=== PATIENT | female | born 1985 | race Caucasian/White ===

== ENCOUNTER 2016-12-17 18:24 | Emergency (ER) | payer MEDICAID ==
[2016-12-17 18:36] VITALS: BP 125/66
[2016-12-17] MEDS ORDERED: CEPHALEXIN 500 MG CAPSULE PO ONE (18:54)
[2016-12-17] MEDS ORDERED: IBUPROFEN 800 MG TABLET PO ONE (18:54)
--- NOTE | 2016-12-17 18:58 | ER Document Report ---
HPI - HPI Patient complains to provider of: arm pain Onset: Other - 2 hours [employer] Onset/Duration: Gradual Quality of pain: Burning Pain Level: 3 Context: Patient states she developed burning to her right upper extremity 2 hours prior to arrival. Patient states area is red and warm to touch. Patient denies any fever. Patient does have an insect bite that she scratched to her right upper arm. Associated Symptoms: Other - Right upper extremity burning, redness. denies: Fever Exacerbated by: Denies Relieved by: Denies Similar symptoms previously: No Recently seen / treated by doctor: Yes - ROS ROS below otherwise negative: Yes Systems Reviewed and Negative: Yes All other systems reviewed and negative - CONSTITUTIONAL Constitutional: DENIES: Fever - EENT EENT: DENIES: Sore Throat - CARDIOVASCULAR Cardiovascular: DENIES: Chest pain - RESPIRATORY Respiratory: DENIES: Coughing - GASTROINTESTINAL Gastrointestinal: DENIES: Nausea - MUSCULOSKELETAL Musculoskeletal: REPORTS: Extremity pain - DERM Skin Color: Erythema Notes: Insect bite to right upper extremity Past Medical History - General Information source: Patient - Social History Smoking Status: Current Every Day Smoker Chew tobacco use (# tins/day): No Frequency of alcohol use: None Drug Abuse: None Occupation: none Family History: Reviewed & Not Pertinent, DM, Hypertension - Medical History Medical History: Negative Pulmonary Medical History: Reports: Hx Pneumonia Neurological Medical History: Denies: Hx Cerebrovascular Accident, Hx Seizures Endocrine Medical History: Denies: Hx Hyperthyroidism, Hx Hypothyroidism Renal/ Medical History: Denies: Hx Kidney Stones, Hx Ovarian Cysts, Hx Peritoneal Dialysis, Hx Pelvic Inflammatory Disease Malignancy Medical History: Denies: Hx Breast Cancer, Hx Cervical Cancer, Hx Ovarian Cancer GI Medical History: Denies: Hx Gastroesophageal Reflux Disease, Hx Hiatal Hernia , Hx Ulcer Musculoskeltal Medical History: Denies Hx Fibromyalgia Traumatic Medical History: Denies: Hx Fractures Infectious Medical History: Denies: Hx HIV Past Surgical History: Reports: Hx Section, Hx Cholecystectomy - Immunizations Immunizations up to date: Yes Hx Diphtheria, Pertussis, Tetanus Vaccination: Yes Vertical Provider Document - CONSTITUTIONAL Agree With Documented VS: Yes Exam Limitations: No Limitations General Appearance: WD/WN, No Apparent Distress - INFECTION CONTROL TRAVEL OUTSIDE OF THE [place] IN LAST 30 DAYS: No - HEENT HEENT: Atraumatic, Normal ENT Exam, Normocephalic Notes: No angioedema - NECK Neck: Normal Inspection, Supple. negative: Lymphadenopathy-Left, Lymphadenopathy-Right - RESPIRATORY Respiratory: Breath Sounds Normal, No Respiratory Distress O2 Sat by Pulse Oximetry: 97 - CARDIOVASCULAR Cardiovascular: Regular Rate, Regular Rhythm, No Murmur Pulses: Normal: Radial - BACK Back: Normal Inspection - MUSCULOSKELETAL/EXTREMETIES Musculoskeletal/Extremeties: MAEW, Tender - Right upper extremity tenderness, warmth and erythema - NEURO Level of Consciousness: Awake, Alert, Appropriate Motor/Sensory: No Motor Deficit - DERM Integumentary: Warm, Dry. negative: Abscess Adult Front & Back Diagram: 1 - Warmth, tenderness and erythema surrounding an area consistent with what patient describes as an insect bite. Course - Vital Signs Vital signs: Temp Pulse Resp BP Pulse Ox 98.9 F 83 20 125/66 97 12/17/16 18:29 12/17/16 18:29 12/17/16 18:29 12/17/16 18:29 12/17/16 18:29 Discharge - Discharge Clinical Impression: Cellulitis Qualifiers: Site of cellulitis: extremity Site of cellulitis of extremity: upper extremity Laterality: right Qualified Code(s): L03.113 - Cellulitis of right upper limb Condition: Stable Disposition: HOME, SELF-CARE Instructions: Anti-Inflammatory Medication ([facility]), Cellulitis ([facility]), Cephalexin ([facility]) Additional Instructions: Return immediately for any new or worsening symptoms Followup with your primary care provider, call tomorrow to make a followup appointment Prescriptions: Cephalexin Monohydrate [Keflex 500 mg Capsule] 500 mg PO Q6H 5 Days capsule Naproxen [Naprosyn 250 Nmg Tablet] 1 tab PO BID #14 tablet Referrals: [facility] [Provider Group] - Follow up tomorrow
== END 2016-12-17 19:05 | disposition home or self-care (01) ==
LOC: ER 18:24
DX: L03.113 Cellulitis of right upper limb (principal); M79.601 Pain in right arm; F17.200 Nicotine dependence, unspecified, uncomplicated; Z90.49 Acquired absence of other specified parts of digestive tract
CPT/HCPCS: 99283; J3490

== ENCOUNTER → 2017-01-03 | Outpatient (CLI) | payer MEDICAID ==
--- NOTE | 2017-01-03 12:34 | RADIOLOGY REPORT (SQ) ---
EXAM DESCRIPTION: LUMBAR SPINE COMPLETE COMPLETED DATE/TIME: 01/03/2017 12:23 pm REASON FOR STUDY: RADICULOPATHY, LUMBAR REGION M54.16 RADICULOPATHY, LUMBAR REGION COMPARISON: None. NUMBER OF VIEWS: Five views including obliques. TECHNIQUE: AP, lateral, oblique, and sacral radiographic images acquired of the lumbar spine. LIMITATIONS: None. FINDINGS: MINERALIZATION: Normal. SEGMENTATION: Normal. No transitional anatomy. ALIGNMENT: Normal. VERTEBRAE: Maintained height. No fracture or worrisome bone lesion. DISCS: Preserved height. No significant osteophytes or end plate irregularity. POSTERIOR ELEMENTS: Pedicles and facets are intact. No pars defect or posterior arch defects. HARDWARE: None in the spine. PARASPINAL SOFT TISSUES: Normal. PELVIS: Intact as visualized. No fractures or worrisome bone lesions. SI joints intact. OTHER: No other significant finding. IMPRESSION: NORMAL 5 VIEW LUMBAR SPINE. TECHNICAL DOCUMENTATION: JOB ID: [id number] [employer]- All Rights Reserved
== END ==
LOC: OD 11:48
PROVIDERS: ATTEND Family Medicine
DX: M54.16 Radiculopathy, lumbar region (principal)
CPT/HCPCS: 72110

== ENCOUNTER 2018-01-15 20:08 | Emergency (ER) | payer BC, MEDICAID ==
[2018-01-15 21:17] LABS: APPEARANCE,URINE HAZY; BILIRUBIN,URINE NEGATIVE (NEGATIVE); COLOR,URINE YELLOW; GLUCOSE, URINE NEGATIVE (NEGATIVE); KETONES,URINE NEGATIVE (NEGATIVE); LEUKOCYTE ESTERASE,URINE LARGE (NEGATIVE); NITRITE,URINE POSITIVE (NEGATIVE); PROTEIN,URINE 30 mg/dL (NEGATIVE); UROBILINOGEN,URINE NEGATIVE mg/dL (<2.0)
[2018-01-15 21:21] LABS: ABSOLUTE BASOPHILS # (AUTO) 0.1 10^3/uL (0.0-0.2); ABSOLUTE EOSINOPHILS # (AUTO) 0.1 10^3/uL (0.0-0.6); ABSOLUTE LYMPHOCYTES (AUTO) 2.6 10^3/uL (0.5-4.7); ABSOLUTE MONOCYTES (AUTO) 0.6 10^3/uL (0.1-1.4); ABSOLUTE NEUT (AUTO) 4.2 10^3/uL (1.7-8.2); BASOPHILS % (AUTO) 0.7 % (0-2); EOSINOPHILS % (AUTO) 0.8 % (0-6); HEMATOCRIT 38.3 % (36.0-47.0); HEMOGLOBIN 13.1 g/dL (12.0-15.5); LYMPHOCYTES % (AUTO) 34.6 % (13-45); MEAN CORPUSCULAR HEMOGLOBIN 28.7 pg (27.0-33.4); MEAN CORPUSCULAR VOLUME 84 fl (80-97); MONOCYTES % (AUTO) 7.6 % (3-13); PLATELET COUNT 234 10^3/uL (150-450); RED BLOOD COUNT 4.55 10^6/uL (3.72-5.28); RED CELL DISTRIBUTION WIDTH 14.5 % (11.5-14.0); SEGMENTED NEUTROPHILS % (AUTO) 56.3 % (42-78); TOTAL CELLS COUNTED % (AUTO) 100 %; WHITE BLOOD COUNT 7.5 10^3/uL (4.0-10.5)
[2018-01-15 21:34] LABS: URINE AMPHETAMINES SCREEN NEGATIVE; URINE BARBITURATES SCREEN NEGATIVE; URINE BENZODIAZEPINES SCREEN NEGATIVE; URINE COCAINE SCREEN NEGATIVE; URINE MARIJUANA (THC) SCREEN NEGATIVE; URINE METHADONE SCREEN NEGATIVE; URINE PHENCYCLIDINE SCREEN NEGATIVE
[2018-01-15 21:35] LABS: ALBUMIN 4.3 g/dL (3.5-5.0); ANION GAP 11 (5-19); BLOOD UREA NITROGEN 9 mg/dL (7-20); CARBON DIOXIDE 26 mmol/L (22-30); CHLORIDE 104 mmol/L (98-107); GLUCOSE 108 mg/dL (75-110); POTASSIUM 3.7 mmol/L (3.6-5.0); SODIUM 141.1 mmol/L (137-145); TOTAL PROTEIN 6.9 g/dL (6.3-8.2)
--- NOTE | 2018-01-15 21:35 | ER Document Report ---
ED General - General Chief Complaint: Suicidal Ideation Stated Complaint: PSYCH EVALUATION Time Seen by Provider: 01/15/18 20:24 Notes: Patient is a 32-year-old female without medical history, no prior psychiatric history who presents today complaining that she "had a nervous breakdown". She is unwilling to disclose the exact trigger but does state that she has been suicidal since having the breakdown. She denies a specific plan but states "I have many ideas". She has a bed at an inpatient psychiatric facility in the morning but she and her significant other do not feel that it is safe for her to be at home at this point given her persistent suicidal ideation. No history of similar symptoms in the past. Nothing improves or worsens her symptoms. She denies any acute medical complaints. She has not seen her primary care doctor regarding today's concerns. TRAVEL OUTSIDE OF THE [place] IN LAST 30 DAYS: No - Related Data Allergies/Adverse Reactions: latex [Latex] Allergy (Unknown, Verified 12/17/16 18:35) Past Medical History - General Information source: Patient - Social History Smoking Status: Never Smoker Frequency of alcohol use: None Drug Abuse: None Lives with: Spouse/Significant other Family History: Reviewed & Not Pertinent, DM, Hypertension - Past Medical History Cardiac Medical History: Denies: Hx Hypertension, Hx Pulmonary Embolism, Hx Heart Murmur Pulmonary Medical History: Reports: Hx Pneumonia Denies: Hx Asthma, Hx Sleep Apnea, Hx Tuberculosis Neurological Medical History: Denies: Hx Cerebrovascular Accident, Hx Seizures Endocrine Medical History: Denies: Hx Hyperthyroidism, Hx Hypothyroidism Renal/ Medical History: Denies: Hx Kidney Stones, Hx Ovarian Cysts, Hx Peritoneal Dialysis, Hx Pelvic Inflammatory Disease Malignancy Medical History: Denies: Hx Breast Cancer, Hx Cervical Cancer, Hx Ovarian Cancer GI Medical History: Denies: Hx Gastroesophageal Reflux Disease, Hx Hiatal Hernia , Hx Ulcer Musculoskeletal Medical History: Denies Hx Fibromyalgia Psychiatric Medical History: Denies: Hx Bipolar Disorder, Hx Depression, Hx Post Traumatic Stress Disorder , Hx Schizophrenia Traumatic Medical History: Denies: Hx Fractures Infectious Medical History: Denies: Hx HIV Past Surgical History: Reports: Hx Section, Hx Cholecystectomy - Immunizations Immunizations up to date: Yes Hx Diphtheria, Pertussis, Tetanus Vaccination: Yes Review of Systems - Review of Systems Notes: Constitutional: Negative for fever. HENT: Negative for sore throat. Eyes: Negative for visual changes. Cardiovascular: Negative for chest pain. Respiratory: Negative for shortness of breath. Gastrointestinal: Negative for abdominal pain, vomiting or diarrhea. Genitourinary: Negative for dysuria. Musculoskeletal: Negative for back pain. Skin: Negative for rash. Neurological: Negative for headaches, weakness or numbness. 10 point ROS negative except as marked above and in HPI. Physical Exam - Vital signs Vitals: Temp Pulse Resp BP Pulse Ox 98.1 F 83 12 132/88 H 99 01/15/18 20:14 01/15/18 20:14 01/15/18 20:14 01/15/18 20:14 01/15/18 20:14 Interpretation: Normal Notes: PHYSICAL EXAMINATION: GENERAL: Well-appearing, well-nourished and in no acute distress. HEAD: Atraumatic, normocephalic. EYES: Pupils equal round and reactive to light, extraocular movements intact, sclera anicteric, conjunctiva are normal. ENT: nares patent, oropharynx clear without exudates. Moist mucous membranes. NECK: Normal range of motion, supple without lymphadenopathy LUNGS: Breath sounds clear to auscultation bilaterally and equal. No wheezes rales or rhonchi. HEART: Regular rate and rhythm without murmurs ABDOMEN: Soft, nontender, normoactive bowel sounds. No guarding, no rebound. No masses appreciated. EXTREMITIES: Normal range of motion, no pitting or edema. No cyanosis. NEUROLOGICAL: No focal neurological deficits. Moves all extremities spontaneously and on command. PSYCH: Depressed mood and affect, tearful SKIN: Warm, Dry, normal turgor, no rashes or lesions noted. Course - Re-evaluation Re-evalutation: 01/15/18 21:34 Patient presents with suicidal ideation, no specific plan but states that she feels extremely unsafe at home and is requesting that she can stay here in the emergency department, complete her medical clearance and be monitored until she can safely be transported to [facility] in the morning. She denies any acute medical complaints. Medical screening exam and labs are unremarkable. She is cleared for evaluation and disposition by psychology in the morning - Vital Signs Vital signs: Temp Pulse Resp BP Pulse Ox 98.1 F 83 12 132/88 H 99 01/15/18 20:14 01/15/18 20:14 01/15/18 20:14 01/15/18 20:14 01/15/18 20:14 - Laboratory Result Diagrams: 01/15/18 21:08 01/15/18 21:08 Laboratory results interpreted by me: 01/15/18 01/15/18 20:50 21:08 RDW 14.5 H Urine Protein 30 H Urine Blood SMALL H Urine Nitrite POSITIVE H Ur Leukocyte Esterase LARGE H Discharge - Discharge Clinical Impression: Suicidal ideation, Anxiety Referrals: ARA ESPINOZA DO [Primary Care Provider] - Follow up as needed
[2018-01-15 21:36] LABS: ALANINE AMINOTRANSFERASE 21 U/L (9-52); ALKALINE PHOSPHATASE 76 U/L (38-126); ASPARTATE AMINO TRANSFERASE 15 U/L (14-36); BILIRUBIN,DIRECT 0.2 mg/dL (0.0-0.4); BILIRUBIN,TOTAL 0.9 mg/dL (0.2-1.3); CALCIUM 9.2 mg/dL (8.4-10.2)
[2018-01-15 21:37] LABS: ACETAMINOPHEN < 10 ug/mL (10-30); ALCOHOL < 10 mg/dL (NONE DETECTED); SALICYLATE < 1.0 mg/dL (2.0-20.0)
[2018-01-15] MEDS ORDERED: ACETAMINOPHEN 325 MG TABLET PO ONE (22:21)
--- NOTE | 2018-01-16 08:17 | EKG REPORT ---
SEVERITY:- ABNORMAL ECG - SINUS RHYTHM PROBABLE LEFT VENTRICULAR HYPERTROPHY : Confirmed by: Brandi Greenwood MD 16-Jan-2018 08:17:01
[2018-01-16] MEDS ORDERED: KETOROLAC TROMETHAMINE 60 MG/2 ML SDV IM ONE (10:45)
--- NOTE | 2018-01-16 11:08 | ER Document Report ---
Doctor's Note Notes: 01/16/18 11:03 Medical Round: Patient complains of a frontal headache which is described as a pressure onset 2 days ago. Patient states she does not normally develop headaches and mentions taking Tylenol which has not helped her symptoms. Patient denies any nausea, vomiting or tingling or numbing sensations in extremities. Discussed plan with patient. Patient is agreeable to plan. Stable for discharge. GENERAL: Alert, interacts well. No acute distress. HEAD: Normocephalic, atraumatic. Tender to palpation to the left maxillary sinuses. EYES: Pupils equal, round, and reactive to light. Extraocular movements intact. NECK: Full range of motion. Supple. Trachea midline. LUNGS: Clear to auscultation bilaterally, no wheezes, rales, or rhonchi. No respiratory distress. HEART: Regular rate and rhythm. No murmurs, gallops, or rubs. EXTREMITIES: Moves all 4 extremities spontaneously. NEUROLOGICAL: Alert and oriented x3. Normal speech. Cranial nerves II through XII grossly intact. PSYCH: Appears mildly depressed. SKIN: Warm, dry, normal turgor. No rashes or lesions noted. (ALYSSA HERNDON) 01/16/18 18:32 Bed is supposed to be coming available for [facility] today. will transfer via POV. IVC has been rescinded. Plan with mental health was to keep patient here until voluntary bed was available at [facility]. 01/16/18 18:33 will be here to transport the patient to [facility] at 7 PM. Patient is stable for discharge at this time. (KARTHIKEYAN REEDER)
--- NOTE | 2018-01-16 12:32 | PSYCHOLOGICAL NOTE ---
Psych Note - Psych Note Psych Note: Reason for Consult: suicidal ideation Patient is a 32-year-old female without medical history, no prior psychiatric history who presents today complaining that she "had a nervous breakdown". Patient reports that she came [facility] for "safety." Patient went to [facility] and received an evaluation; she was told they has no beds, but one would be available today. She disclosed she did not feel safe going home. She discloses "I do not know what happened something snapped inside... Everything is overwhelmed to me... I left my family for 38 days." She continued to disclose her thoughts and emotions stating that she felt that she hurt everyone and could not fix herself. She reports that that was when she started having suicidal ideation. She reports that that started approximately "a few weeks ago." She disclosed that she did return home to her family and states that she knew that she was supposed to be happy however with pressure and anxiety started to get into her; "the voice in my head was telling me to run to leave." She states that she came to [facility] because she started wanting to hurt herself. She confirms that she wanted to end her life and thought of different ways however denies having a plan. Patient denies ever having a mental health diagnoses or medications. Patient denies ever seeing an outpatient mental health provider. Patient denies having any substance abuse issues in her past or current. She reports that both her mother and sister are diagnosed with bipolar. When asked if the patient wanted to she states "I know I do not want to but something tells me it would just be easier." Behavioral health team contacted [facility] and confirmed patient does have a voluntarily bed however he will not be available to later in the afternoon. Patient is alert and orientated to person, place, time and circumstance. Mood is dysphoric with flat affect. Patient endorses passive suicidal ideation i.e. no plans means or intent. Patient denies homicidal ideation. Delusions are absent behaviors congruent with an intact reality based presentation i.e. organized and linear thought process. Eye contact is fair. Conversational speech was within normal rate, tone and prosody. Intellectual abilities appear to be within the average range. Attention and concentration are good. Insight , judgment, impulse control are good as evidenced by patient identifying when she needed help and then continued to ensure her safety until her voluntary bed was available today. No medication or conditions at this time 311 (F32.9) unspecified depressive disorder Impression\\plan: Patient is cleared from acute psychiatric services. Patient does not meet IVC criteria per [place] GS 122C. Will patient presents with dysphoric mood and flat affect patient describes passive suicidal ideation i.e. no plans means or intent. When patient was asked if she wanted to , she denied. Patient does report wanting to go voluntarily to inpatient psychiatric treatment and does have a bed available at [facility]. Behavior health team contacted [facility] and confirmed this information. Patient is highly encouraged to follow through with her identified plan of seeking treatment. Dr. Reyes was consulted and the care and management this patient; attending physician is agreement with recommendations and disposition.
[2018-01-16 16:35] VITALS: BP 110/55
== END 2018-01-16 19:15 | disposition home or self-care (01) ==
LOC: ER 20:08
DX: F41.9 Anxiety disorder, unspecified (principal); R45.851 Suicidal ideations; R51 Headache; Z91.040 Latex allergy status
CPT/HCPCS: 93005; 99285; 96372; 36415; 80307 ×4; 84703; 85025; 80053; 81001; 93010; J1885